=== PATIENT | male | born 1980 | race Caucasian/White ===

== ENCOUNTER 2021-02-27 10:37 | Emergency (ER) | payer OTHER ==
[~2021-02-27] VITALS: Ht 172.7 cm; Wt 90.7 kg
[2021-02-27] MEDS ORDERED: ALBU90OI INH (11:29)
[2021-02-27] MEDS ORDERED: ONDA4ODT MM (11:29)
== END 2021-02-27 11:30 | disposition home or self-care (01) ==
LOC: ER 10:37
DX: U07.1 COVID-19 (principal)
CPT/HCPCS: 99284

== ENCOUNTER 2024-04-24 11:54 | Emergency (ER) | payer OTHER ==
[~2024-04-24] VITALS: Ht 172.7 cm; Wt 95.2 kg
[~2024-04-24 11:54] MED LIST: ALBU90OI INH; ONDA4ODT MM
[2024-04-24 12:16] VITALS: BP 133/88
[2024-04-24] MEDS ORDERED: Diphth,Pertuss(Acell),Tet Vac 0.5 ML VIAL IM ONE (12:50)
== END 2024-04-24 14:00 | disposition home or self-care (01) ==
LOC: ER 11:54
DX: S01.81XA Laceration without foreign body of other part of head, initial encounter (principal); V89.2XXA Person injured in unspecified motor-vehicle accident, traffic, initial encounter
CPT/HCPCS: 12052; 90471; 90715; 99282-25